=== PATIENT | male | born 1975 | race Caucasian/White ===

== ENCOUNTER 2018-08-13 07:25 | Emergency (ER) | payer BC ==
[2018-08-13] MEDS ORDERED: Sodium Chloride 0.9% 1,000 ML IV ONE ×2 (07:56→10:18)
--- NOTE | 2018-08-13 08:00 | C.PDOC ---
History Of Present Illness 42 yo male w/PMHx of HTN, non-compliant with medication, comes in for evaluation of diffuse abdominal pain gradually developed for psat 3 days " had some bad sandwich" associated with intermittent episodes of nausea and non-bilious, non- bloody vomiting. Pt reports, last episode of vomiting was 2 days ago, was able tolerate PO liquids for past 24 hrs. Pt describes abd. pain as diffuse, cramping, worse with food intake. Admits, similar sx in past " last year had same, was diagnosed with colitis at [facility]". Denies high fever, chills, recent illness, sore throat, CP, SOB, dyspnea, palpitation, hematemesis, melena, diarrhea, back pain, UTI sx, denies recent travel or known sick contact. AT the time of evaluation, appears comfortable, denies active abd. pian. Time Seen by Provider: 08/13/18 07:35 Chief Complaint (Nursing): Abdominal Pain History Per: Patient Past Medical History Reviewed: Historical Data, Nursing Documentation, Vital Signs Vital Signs: Last Vital Signs Temp 98.3 F 08/13/18 07:29 Pulse 76 08/13/18 07:49 Resp 15 08/13/18 07:49 BP 193/147 H 08/13/18 07:49 Pulse Ox 99 08/13/18 07:49 - Medical History PMH: HTN (NON COMPLIANT) Surgical History: Denies: Appendectomy, Cholecystectomy Family History: States: No Known Family Hx - Social History Hx Tobacco Use: No Hx Alcohol Use: No Hx Substance Use: No - Immunization History Hx Tetanus Toxoid Vaccination: No Hx Influenza Vaccination: No Hx Pneumococcal Vaccination: No Review Of Systems Except As Marked, All Systems Reviewed And Found Negative. Constitutional: Negative for: Fever, Chills Eyes: Negative for: Vision Change ENT: Negative for: Ear Discharge, Nose Discharge, Throat Pain Cardiovascular: Negative for: Chest Pain, Palpitations, Orthopnea, Edema, Light Headedness Respiratory: Negative for: Cough, Shortness of Breath Gastrointestinal: Positive for: Nausea, Vomiting, Abdominal Pain. Negative for: Diarrhea, Melena, Hematochezia, Hematemesis Genitourinary: Negative for: Dysuria, Frequency Musculoskeletal: Negative for: Neck Pain, Back Pain Skin: Negative for: Rash Neurological: Negative for: Weakness, Numbness, Altered Mental Status, Headache, Dizziness Physical Exam - Physical Exam Appears: Well, Non-toxic, No Acute Distress Skin: Normal Color, Warm, Dry, No Rash Head: Normacephalic Eye(s): bilateral: PERRL Nose: No Flaring, No Discharge Oral Mucosa: Moist Throat: No Erythema, No Drooling Neck: Trachea Midline, Supple Cardiovascular: Rhythm Regular Respiratory: No Decreased Breath Sounds, No Accessory Muscle Use, No Stridor, No Wheezing Gastrointestinal/Abdominal: Bowel Sounds (normal), Soft, No Tenderness, No Organomegaly, No Distention, No Guarding, No Rebound Back: No CVA Tenderness Extremity: Normal ROM, No Pedal Edema, No Deformity, No Swelling Neurological/Psych: Oriented x3, Normal Speech, Normal Motor, Normal Sensation, Normal Reflexes ED Course And Treatment - Laboratory Results Result Diagrams: 08/13/18 08:07 08/13/18 08:07 Lab Interpretation: No Acute Changes ECG: Interpreted By Me, Viewed By Me ECG Rhythm: Sinus Rhythm Interpretation Of ECG: SR@78/min, NAD, T wave inversion in inferior leads, no acute ST-T changes. NO old study available to compare O2 Sat by Pulse Oximetry: 99 Pulse Ox Interpretation: Normal - CT Scan/US CT A/P Other Rad Studies (CT/US): Radiology Report Reviewed CT/US Interpretation: Creator : Gurjit Mooney MD. Dictator : Gurjit Mooney MD. Irrigation Teacher : Blender Helper : Gurjit Mooney MD. Approver2 : Report Date : 08/13/2018 09:58:44. My Comment : . Date of service: 08/13/2018. PROCEDURE: CT Abdomen and Pelvis with contrast. HISTORY: abd pain, N/V. COMPARISON: None. TECHNIQUE: Following the intravenous administration of iodinated contrast material, a CT examination of the abdomen and pelvis performed from the domes of the diaphragms to the symphysis pubis with reformatted datasets provided in axial, sagittal and coronal planes. Oral contrast was not administered as per referring physician request. Coronal and sagittal reformats were generated. Contrast dose: Visipaque 320, 100 cc. Radiation dose: Total exam DLP = 1325.71 mGy-cm. This CT exam was performed using one or more of the following dose reduction techniques: Automated exposure control, adjustment of the mA and/or kV according to patient size, and/or use of iterative reconstruction technique. FINDINGS: LOWER THORAX: Limited infiltrate noted right lower lobe. LIVER: Borderline diminished attenuation of the liver may indicate an element of hepatic stea tosis. No discrete hepatic mass or intrahepatic biliary dilatation appreciated. GALLBLADDER AND BILE DUCTS: Moderate gallbladder distention is appreciate with the gallbladder otherwise unremarkable appearing. No acute changes related vol. PANCREAS: Unremarkable. No gross lesion or ductal dilatation. SPLEEN: Unremarkable. ADRENALS: Unremarkable. No mass. KIDNEYS AND URETERS: Unremarkable. No hydronephrosis. No solid mass. VASCULATURE: Unremarkable. No aortic aneurysm. No aortic atherosclerotic calcification or mural plaque present. BOWEL: Evaluation of the gastrointestinal tract is limited due to the lack of oral contrast administration. Stomach is collapsed not well evaluated. Limited retained fecal material scattered throughout the large bowel. No bowel obstruction identified. No colonic diverticular changes evident. APPENDIX: Normal appendix. PERITONEUM: Unremarkable. No free fluid. No free air. LYMPH NODES: Unremarkable. No enlarged lymph nodes. BLADDER: Unremarkable. REPRODUCTIVE: Unremarkable. BONES: No acute fracture. OTHER FINDINGS: None. IMPRESSION: 1. No definitive acute abdomen or pelvic findings as discussed above. 2. Mild hepatic steatosis in question. No patent mass or intrahepatic biliary dilatation appreciable. Progress Note: Pt was OBS in ED for 3 hours and reamined asymptomatic. Pt reports, " have no pain anywhere, Im fine". VS review, remained HTN. Asymptomatic, denies headache, dizziness, visual changes, neck pain, CP, SOB, dyspnea, palpitation or any oethr relaited sx. Afebrile, hemodynamicaly stable. Neck: Supple, (-) JVD, (-) carotid bruits B/L. Lungs: CTA B/L, BS equal B/L. CVS: (+)S1S2, reg. Abd: benign, (-) guaridng, (-) rebound. back: (-) CVA tenderness. neuorlogicaly intact. Case discussed with , blood work, EKG, CT A/P review, appears without acute abnormalities. Pt has clinical findings c/w HTN ( non-compliant with meds), abd. pain, N/V r/o viral illness. As per , discharge with outpt f/u recommend at present time. Results review and discussed with pt. Pt advised and ref. to F/u with PMD, Card, GI in 2-3 days for re-eavluation. return to ED if any worsening or new changes. Disposition Counseled Patient/Family Regarding: Studies Performed, Diagnosis, Need For Followup, Rx Given - Disposition Referrals: [facility] [Outside] Disposition: HOME/ ROUTINE Disposition Time: 10:20 Condition: STABLE Additional Instructions: Encourage fluids Diet restriction for 2-3 days Take medication as prescribed Follow up with PMD, cardiology in 1-2 days for re-evaluation and further monitor and treatment of HTN. return to ED if any worsening or new changes. Prescriptions: Enalapril/Hydrochlorothiazide [Enalapril-Hctz 10-25 mg Tablet] 1 each PO BID #20 tablet Famotidine [Pepcid] 20 mg PO BID #20 tab Pantoprazole Sodium [Protonix] 40 mg PO DAILY #20 tablet. Instructions: High Blood Pressure in Adults, Nausea and Vomiting, Adult (DC) Forms: [facility] ([place]), Work Excuse - Clinical Impression Clinical Impression: Hypertension, Nausea, Abdominal distension, Vomiting
[2018-08-13 08:09] LABS: BASO % 0.6 % (0.0-2.0); EOS % 0.3 % (0.0-4.0); HEMOGLOBIN 18.8 g/dL (12.0-18.0); LYMPH # 1.1 K/uL (1.0-4.3); MEAN CELL VOLUME 89.9 fL (80.0-94.0); MEAN CORPUSCULAR HEMOGLOBIN 30.6 pg (27.0-31.0); MEAN PLATELET VOLUME 7.8 fL (7.2-11.7); MONO # 0.7 K/uL (0.0-0.8); MONO % 10.1 % (0.0-10.0); NEUT # 5.2 K/uL (1.8-7.0); NRBC % 0.2 % (0.0-2.0); RBC 6.15 Mil/uL (4.40-5.90); RED CELL DISTRIBUTION WIDTH 13.2 % (11.5-14.5)
[2018-08-13] MEDS ORDERED: Sodium Chloride 0.9% 1,000 ML ONE ×2 (08:10→10:27)
[2018-08-13 08:25] LABS: INR 1.3; PROTHROMBIN TIME 13.9 SECONDS (9.7-12.2)
[2018-08-13 08:32] LABS: ALB/GLOB RATIO 1.3 (1.0-2.1); ALBUMIN 4.6 g/dL (3.5-5.0); ALT/SGPT 47 U/L (21-72); AMYLASE 67 U/L (30-110); AST/SGOT 32 U/L (17-59); BLOOD UREA NITROGEN 19 mg/dL (9-20); CALCIUM 9.2 mg/dl (8.6-10.4); GFR NON-AFRICAN AMERICAN > 60; LIPASE 43 U/L (23-300)
[2018-08-13] MEDS ORDERED: Iodixanol 320 MG/ML 100 ML BOTTLE IV ONE (08:52)
--- NOTE | 2018-08-13 10:02 | CT ---
Date of service: 08/13/2018 PROCEDURE: CT Abdomen and Pelvis with contrast HISTORY: abd pain, N/V COMPARISON: None. TECHNIQUE: Following the intravenous administration of iodinated contrast material, a CT examination of the abdomen and pelvis performed from the domes of the diaphragms to the symphysis pubis with reformatted datasets provided in axial, sagittal and coronal planes. Oral contrast was not administered as per referring physician request. Coronal and sagittal reformats were generated. Contrast dose: Visipaque 320, 100 cc Radiation dose: Total exam DLP = 1325.71 mGy-cm. This CT exam was performed using one or more of the following dose reduction techniques: Automated exposure control, adjustment of the mA and/or kV according to patient size, and/or use of iterative reconstruction technique. FINDINGS: LOWER THORAX: Limited infiltrate noted right lower lobe. LIVER: Borderline diminished attenuation of the liver may indicate an element of hepatic steatosis. No discrete hepatic mass or intrahepatic biliary dilatation appreciated. GALLBLADDER AND BILE DUCTS: Moderate gallbladder distention is appreciate with the gallbladder otherwise unremarkable appearing. No acute changes related vol. PANCREAS: Unremarkable. No gross lesion or ductal dilatation. SPLEEN: Unremarkable. ADRENALS: Unremarkable. No mass. KIDNEYS AND URETERS: Unremarkable. No hydronephrosis. No solid mass. VASCULATURE: Unremarkable. No aortic aneurysm. No aortic atherosclerotic calcification or mural plaque present. BOWEL: Evaluation of the gastrointestinal tract is limited due to the lack of oral contrast administration. Stomach is collapsed not well evaluated. Limited retained fecal material scattered throughout the large bowel. No bowel obstruction identified. No colonic diverticular changes evident. APPENDIX: Normal appendix. PERITONEUM: Unremarkable. No free fluid. No free air. LYMPH NODES: Unremarkable. No enlarged lymph nodes. BLADDER: Unremarkable. REPRODUCTIVE: Unremarkable. BONES: No acute fracture. OTHER FINDINGS: None. IMPRESSION: 1. No definitive acute abdomen or pelvic findings as discussed above. 2. Mild hepatic steatosis in question. No patent mass or intrahepatic biliary dilatation appreciable.
[2018-08-13 11:10] VITALS: PULSE 68
[2018-08-13 11:43] LABS: SQUAMOUS EPITHIAL < 1 /hpf (0-5); URINE BILIRUBIN NEGATIVE (NEGATIVE); URINE BLOOD NEGATIVE (NEGATIVE); URINE CLARITY Clear (Clear); URINE COLOR Yellow (YELLOW); URINE GLUCOSE (UA) NORMAL (Normal); URINE LEUKOCYTE ESTERASE NEG Leu/uL (Negative); URINE PROTEIN NEGATIVE (NEGATIVE)
[2018-08-13 12:37] VITALS: BP 186/114; RESP 16; TEMP 98.5; O2SAT 99
--- NOTE | 2018-08-14 21:58 | CARD ---
APPROVED REPORT Date of service: 08/13/2018 EKG Measurement Heart [id number] <Conclusion> Normal sinus rhythm Voltage criteria for left ventricular hypertrophy ST & T wave abnormality, consider lateral ischemia Prolonged QT Abnormal ECG
== END 2018-08-13 12:37 | disposition home or self-care (01) ==
LOC: C.ER 07:25
DX: R14.0 Abdominal distension (gaseous) (principal); R11.2 Nausea with vomiting, unspecified; I10 Essential (primary) hypertension; Z91.14 Patient's other noncompliance with medication regimen
CPT/HCPCS: 74177; 80053; 81001; 82150; 83690; 84484; 85025; 85610; 85730; 87040; 93005; 96361; 96374; 96375; 99285; C9113; J1885; J2405; J7030; Q9967